=== PATIENT | male | born 1965 | race Caucasian/White ===

== ENCOUNTER 2018-10-20 06:45 | Inpatient (IN) | payer OTHER ==
[2018-10-20] VITALS (46 sets, daily range): BP systolic 75–112; BP diastolic 49–75
[~2018-10-20] VITALS: Ht 180.3 cm; Wt 94.3 kg
[2018-10-20] MEDS ORDERED: NS(*) 0.9% 1000 ML BAG 1,000 ML IV ONE ×4 (07:00→09:00)
[2018-10-20] MEDS ORDERED: ONDANSETRON 4 MG/2 ML VIAL IVP ONE (07:05)
[2018-10-20 07:15] LABS: PLATELET COUNT, AUTOMATED 187 K/uL (150-450)
[2018-10-20] MEDS ORDERED: fentaNYL CITR 100 MCG/2 ML AMP IVP ONE ×2 (07:20→12:00)
[2018-10-20] MEDS ORDERED: KETOROLAC 30 MG/ML VIAL IVP ONE (07:20)
[2018-10-20 07:25] LABS: INR 1.07
[2018-10-20] MEDS ORDERED: VANCOMYCIN 1 GM ADDVIAL 1 GM in NS(*) 0.9% 250 ML ADDVAN BAG 250 ML IVPB ONE (07:40)
[2018-10-20] MEDS ORDERED: PIPERACILLIN/TAZO*3.375GM VIAL 3.375 GM in NS(*) 0.9% 100 ML MINI-BAG 100 ML IVPB ONE (07:40)
--- NOTE | 2018-10-20 07:48 | ER Report ---
History and Physical Time Seen By MD: 07:48 Hx. of Stated Complaint: LOW BACK PAIN AND FEVER FOR 2 DAYS. GETS HEPATITIS C TREATMENT BUT DOES NOT KNOW WHAT IT IS HPI/ROS Known hep C. Currently undergoing treatment, but patient unsure of which regimen. 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 Brought to the ED by POV? Febrile, cough, somewhat confused. Admits to going to a casino on Sunday and drinking a moderate amount of alcohol. No abdominal pain. No vomiting/diarrhea. Remainder of the 14 system rev: Yes Allergies: Coded Allergies: No Known Drug Allergies (Unverified , 10/20/18) Home Meds Reported Medications Omeprazole (OMEPRAZOLE) 20 Mg Capsule.dr, 1 CAP PO QDAY, CAP 10/20/18 Glipizide (GLIPIZIDE) 10 Mg Tablet, 10 MG PO DAILY 10/20/18 Metformin Hcl (METFORMIN HCL) 1,000 Mg Tablet, 2 TAB PO QDAY, TAB 10/20/18 Reviewed Nurses Notes: Yes Old Medical Records Reviewed: Yes Hx Smoking: Yes Smoking Status: Current: Every Day Smoker Hx Substance Use Disorder: No Hx Alcohol Use: No Constitutional Vital Sign - Last 24 Hours 10/20/18 10/20/18 10/20/18 10/20/18 06:45 06:50 06:55 07:00 Pulse ? 110 113 B/P (MAP) 140/92 (108) 139/70 (93) Pulse Ox 91 92 10/20/18 10/20/18 10/20/18 10/20/18 07:03 07:05 07:10 07:15 Temp 103.3 Pulse 122 123 121 124 Resp 22 B/P (MAP) 140/90 Pulse Ox 88 90 90 91 O2 Delivery Room Air 10/20/18 10/20/18 10/20/18 10/20/18 07:20 07:25 07:29 07:40 Pulse 117 122 119 Resp 29 13 15 B/P (MAP) 132/71 (91) 112/65 (81) Pulse Ox 92 90 93 10/20/18 10/20/18 10/20/18 10/20/18 07:50 07:55 08:00 08:30 Pulse 111 Resp 19 B/P (MAP) 117/62 (80) 103/63 (76) 101/63 (76) Pulse Ox 91 10/20/18 10/20/18 10/20/18 10/20/18 08:40 08:45 08:50 08:53 Temp 102.4 Pulse 107 107 105 Resp 24 25 16 B/P (MAP) 103/65 (78) 93/60 (71) 93/60 (71) Pulse Ox 92 92 91 O2 Delivery Nasal Cannula O2 Flow Rate 2 10/20/18 10/20/18 10/20/18 10/20/18 09:00 09:10 09:15 09:20 Pulse 102 115 Resp 22 38 B/P (MAP) 101/64 (76) 104/58 (73) 108/64 (79) Pulse Ox 92 93 10/20/18 10/20/18 10/20/18 10/20/18 09:30 09:40 09:45 09:50 Pulse 114 107 106 Resp 0 25 18 B/P (MAP) 101/66 (78) 106/68 (81) 95/58 (70) Pulse Ox 82 96 96 O2 Delivery Nasal Cannula O2 Flow Rate 3 10/20/18 10/20/18 10/20/18 10/20/18 09:55 10:00 10:10 10:20 Pulse 102 Resp 11 B/P (MAP) 91/49 (63) 83/52 (62) 89/54 (66) Pulse Ox 96 10/20/18 10/20/18 10/20/18 10:25 10:30 10:34 Temp 101.7 Pulse 114 113 Resp 24 18 B/P (MAP) 71/40 (50) 89/51 (64) Pulse Ox 97 98 O2 Delivery Nasal Cannula O2 Flow Rate 3 Physical Exam General Appearance: The patient is alert, has no immediate need for airway protection and no signs of toxicity. Eyes: Pupils equal and round no pallor or injection. ENT, Mouth: Mucous membranes are dry Respiratory: There are no retractions, lungs with diffuse rhonchi Cardiovascular: Tachycardic Gastrointestinal: Abdomen is mildly distended, soft and non tender, no masses, bowel sounds normal. Neurological: Awake and alert, but mildly confused Skin: Warm and dry, no rashes. Musculoskeletal: Neck is supple non tender. Extremities are nontender, nonswollen and have full range of motion. DIFFERENTIAL DIAGNOSIS: After history and physical exam differential diagnosis was considered for adult fever including but not limited to viral syndromes including influenza, urinary tract infection, pneumonia and sepsis. Medical Decision Making Data Points Result Diagram: 10/20/18 0659 10/20/18 0659 Laboratory Hematology Test 10/20/18 06:59 10/20/18 09:24 Red Blood Count 4.67 M/uL (4.00-5.60) Mean Corpuscular Volume 91.7 fL (80.0-96.0) Mean Corpuscular Hemoglobin 30.3 pg (26.0-33.0) Mean Corpuscular Hemoglobin Concent 33.0 g/dL (32.0-36.0) Red Cell Distribution Width 18.2 % (11.5-14.5) Mean Platelet Volume 8.7 fL (7.2-11.1) Neutrophils (%) (Auto) 83.8 % (39.4-72.5) Lymphocytes (%) (Auto) 13.3 % (17.6-49.6) Monocytes (%) (Auto) 1.2 % (4.1-12.4) Eosinophils (%) (Auto) 1.3 % (0.4-6.7) Basophils (%) (Auto) 0.4 % (0.3-1.4) Nucleated RBC Relative Count (auto) 0.0 /100WBC Neutrophils # (Auto) 6.9 K/uL (2.0-7.4) Lymphocytes # (Auto) 1.1 K/uL (1.3-3.6) Monocytes # (Auto) 0.1 K/uL (0.3-1.0) Eosinophils # (Auto) 0.1 K/uL (0.0-0.5) Basophils # (Auto) 0.0 K/uL (0.0-0.1) Nucleated RBC Absolute Count (auto) 0.00 K/uL Prothrombin Time 14.0 seconds (12.0-14.4) Prothromb Time International Ratio 1.07 Activated Partial Thromboplast Time 27 seconds (23-35) Sodium Level 135 mmol/L (137-145) Potassium Level 3.8 mmol/L (3.5-5.0) Chloride Level 100 mmol/L (98-107) Carbon Dioxide Level 22 mmol/L (22-30) Blood Urea Nitrogen 11 mg/dl (9-21) Creatinine 0.60 mg/dl (0.66-1.25) Glomerular Filtration Rate Calc > 60.0 Random Glucose 293 mg/dl (75-110) Calcium Level 9.0 mg/dl (8.4-10.2) Total Bilirubin 1.5 mg/dl (0.2-1.3) Aspartate Amino Transf (AST/SGOT) 117 U/L (0-35) Alanine Aminotransferase (ALT/SGPT) 102 U/L (0-56) Alkaline Phosphatase 279 U/L (0-126) Ammonia 57 UMOL/L (9-33) Total Protein 7.5 g/dl (6.3-8.2) Albumin 3.6 g/dl (3.5-5.0) Amylase Level 41 U/L (0-110) Lipase 73 U/L (23-300) Lactate 3.3 mmol/L (0.7-2.1) Chemistry Test 10/20/18 06:59 10/20/18 09:24 White Blood Count 8.2 k/uL (4.5-11.0) Red Blood Count 4.67 M/uL (4.00-5.60) Hemoglobin 14.1 g/dL (14.0-18.0) Hematocrit 42.8 % (42.0-52.0) Mean Corpuscular Volume 91.7 fL (80.0-96.0) Mean Corpuscular Hemoglobin 30.3 pg (26.0-33.0) Mean Corpuscular Hemoglobin Concent 33.0 g/dL (32.0-36.0) Red Cell Distribution Width 18.2 % (11.5-14.5) Platelet Count 187 K/uL (150-450) Mean Platelet Volume 8.7 fL (7.2-11.1) Neutrophils (%) (Auto) 83.8 % (39.4-72.5) Lymphocytes (%) (Auto) 13.3 % (17.6-49.6) Monocytes (%) (Auto) 1.2 % (4.1-12.4) Eosinophils (%) (Auto) 1.3 % (0.4-6.7) Basophils (%) (Auto) 0.4 % (0.3-1.4) Nucleated RBC Relative Count (auto) 0.0 /100WBC Neutrophils # (Auto) 6.9 K/uL (2.0-7.4) Lymphocytes # (Auto) 1.1 K/uL (1.3-3.6) Monocytes # (Auto) 0.1 K/uL (0.3-1.0) Eosinophils # (Auto) 0.1 K/uL (0.0-0.5) Basophils # (Auto) 0.0 K/uL (0.0-0.1) Nucleated RBC Absolute Count (auto) 0.00 K/uL Prothrombin Time 14.0 seconds (12.0-14.4) Prothromb Time International Ratio 1.07 Activated Partial Thromboplast Time 27 seconds (23-35) Glomerular Filtration Rate Calc > 60.0 Calcium Level 9.0 mg/dl (8.4-10.2) Total Bilirubin 1.5 mg/dl (0.2-1.3) Aspartate Amino Transf (AST/SGOT) 117 U/L (0-35) Alanine Aminotransferase (ALT/SGPT) 102 U/L (0-56) Alkaline Phosphatase 279 U/L (0-126) Ammonia 57 UMOL/L (9-33) Total Protein 7.5 g/dl (6.3-8.2) Albumin 3.6 g/dl (3.5-5.0) Amylase Level 41 U/L (0-110) Lipase 73 U/L (23-300) Lactate 3.3 mmol/L (0.7-2.1) Coagulation Test 10/20/18 06:59 Prothrombin Time 14.0 seconds Prothromb Time International Ratio 1.07 Activated Partial Thromboplast Time 27 seconds Microbiology Microbiology Date/Time Source Procedure Growth Status 10/20/18 07:34 Blood Line Draw Blood Culture - Preliminary NO GROWTH SO FAR, SET LATE. REINCUBATED Resulted 10/20/18 06:59 Blood Peripheral Draw Blood Culture - Preliminary NO GROWTH SO FAR, SET LATE. REINCUBATED Resulted ED Course/Re-evaluation ED Course Sepsis likely secondary to pneumonia. No PE. GI bleed. CT scan of the abdomen and pelvis shows chronic findings from hepatitis cirrhosis. Not consistent with SBP. Given broad-spectrum antibiotics early in the patient's course due to sepsis. Blood pressure continued to drop in spite of fluid resuscitation, so Central Line placed. Pt. has improved clinically, however. Will admit to the ICU for further care. Procedure Procedure: Central line placement. After verbal informed consent from patient; with the risks explained to be bleeding, infection, and collapsed lung; maximal sterile barrier technique was uses including cap, gown, sterile gloves, large sheet, hand washing and chlorhexidine prep. The area anesthetized with 1% lidocaine. The right IJ was punctured with a 19 gauge finder needle, then a wire introducer was placed, a 7 Kazakh triple lumen was placed using Seldinger technique. There were no complications. Blood return low pressure, dark blood. Patient tolerated procedure well. CXR results: Appropriate line placement, and no pneumothorax. Xray was interpreted by myself. Radiologist interpretation is pending. The procedure was performed by myself. Decision to Disposition Date: Oct 20, 2018 Decision to Disposition Time: 11:54 Depart Departure Latest Vital Signs Vital Signs Date Time Temp Pulse Resp B/P (MAP) Pulse Ox O2 Delivery O2 Flow Rate FiO2 10/20/18 10:34 101.7 113 18 89/51 (64) 98 Nasal Cannula 3 Impression: Primary Impression: Pneumonia Additional Impression: Sepsis Condition: Improved Disposition: Admitted from ER Problem Qualifiers Primary Impression: Pneumonia Pneumonia type: due to unspecified organism Laterality: right Lung location: upper lobe of lung Qualified Codes: J18.1 - Lobar pneumonia, unspecified organism Additional Impression: Sepsis Sepsis type: sepsis due to unspecified organism Qualified Codes: A41.9 - Sepsis, unspecified organism MIA RMOANO MD Oct 20, 2018 07:48
--- NOTE | 2018-10-20 07:54 | EKG ---
[place] [facility] [place] NAME[place] BIENVENIDO MILNER : [id number] MR: [id number] V: [id number] EXAM DATE: ORDERING PHYSICIAN: MIA ROMANO TECHNOLOGIST: JACY Test Reason : AMS Blood Pressure : / mmHG Vent. Rate : 116 BPM Atrial Rate : 116 BPM P-R Int : 152 ms QRS Dur : 094 ms QT Int : 336 ms P-R-T Axes : 045 -55 049 degrees QTc Int : 467 ms Sinus tachycardia Left anterior fascicular block Inferior infarct , age undetermined Abnormal ECG No previous ECGs available Confirmed by Reno Chang ([id number]) on 10/20/2018 5:17:15 PM Referred By: JUAN ANTONIO Confirmed By:Reno Rodriguez
[2018-10-20] MEDS ORDERED: NS 0.9% IVPB ONE (08:00)
[2018-10-20] MEDS ORDERED: IOPAMIDOL 76% 100 ML INFUS BTL 100 ML ONE (08:00)
[2018-10-20] MEDS ORDERED: NS(*) 0.9% 50 ML BAG 50 ML ONE (08:00)
[2018-10-20] MEDS ORDERED: VANCOMYCIN IVPB ONE (08:00)
[2018-10-20] MEDS ORDERED: ADDVIAL IVPB ONE (08:00)
--- NOTE | 2018-10-20 09:12 | RADIOLOGY IMAGING REPORT ---
[facility] PATIENT NAME: Danny Mckeon : 1965 MR: [id number] V: [id number] EXAM DATE: ORDERING PHYSICIAN: MIA ROMANO TECHNOLOGIST: Location: 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 CT chest, abdomen, a nd pelvis with contrast. Sagittal, coronal and slab 3D MIP coronal reconstructed images were also cr eated of the chest for further evaluation and interpretation. One of the following dose optimization techniques was utilized in the performance of this exam: Autom ated exposure control; adjustment of the mA and/or kV according to the patient's size; or use of an i terative reconstruction technique. Specific details can be referenced in the facility's radiology CT exam operational policy. CONTRAST: 90 mL Isovue-370. COMPARISON: CT chest, abdomen, pelvis from same date. FINDINGS: CHEST: Heart/vessels: Satisfactory opacification of the pulmonary arteries without visualized pulmonary emb olus. Mediastinum: Negative. Lymph nodes: Numerous nonspecific subcentimeter mediastinal, hilar, cardiophrenic angle and axillary lymph nodes. Borderline prominent left axillary lymph node measuring up to 10 mm in short axis (imag e 19 of series 4). Borderline prominent right axillary lymph node measuring up to 12 mm in short axis (image 17). Lungs/pleura: Cluster of nodular opacities within the periphery of the right upper lobe with focal a del of consolidation measuring up to 14 x 7 mm (image 105 of series 10). No additional pulmonary opac ities identified. There is mild basilar atelectasis. Bones/soft tissues: Negative. ABDOMEN/PELVIS: Hepatobiliary: Asymmetric enlargement of the left and caudate lobes with lobulated nodular contour o f the liver, concerning for cirrhosis. No visualized hepatic lesions. There are a few punctate calcif ied granulomas. Diffuse gallbladder wall edema. No gross cholelithiasis. Spleen: Absent Adrenals: Indeterminate density right adrenal nodule measuring approximately 4.0 x 2.6 cm. Left adre nal gland is unremarkable. Pancreas: Negative. Kidneys/: Exophytic cystic lesion extending laterally off the right kidney measuring up to 1.5 cm i n diameter. There is slightly increased attenuation measuring approximately 23 Hounsfield units. Mild /moderate nonspecific diffuse bladder wall thickening which may be at least somewhat related to under distention. GI: Moderate circumferential wall thickening throughout the large and small bowel. Appendix is unrem arkable. No definitive evidence for small bowel obstruction although there is prominent loops of jeju num, favored related to the wall thickening. The wall thickening within the small bowel is greatest w ithin the jejunum. Vessels/spaces/nodes: Moderate atherosclerosis. Small volume free fluid. Numerous nonspecific subce ntimeter retroperitoneal and mesenteric lymph nodes. Borderline prominent periportal lymph nodes. Niles ple node on image 96 measures up to 18 mm in short axis. Aorta and IVC appear widely patent and viviane l in caliber. Prominence of the main portal vein measuring up to 21 mm. Portal and hepatic veins appear grossly pat ent. There are small/moderate caliber abdominal varices. SMV is prominent in size and widely patent. Bones/soft tissues: Multiple small fat-containing supraumbilical ventral abdominal wall hernias. 5 mm anterolisthesis of L5 on S1 with bilateral L5 pars defects and moderate L5-S1 degenerative disc di sease. IMPRESSION: Chest: 1. No acute findings. Negative for pulmonary embolus. 2. Focal cluster of nodular opacities within the right upper lobe favored related to a small airways infectious process including fungal and atypical etiologies. Alternatively however cannot exclude a p rimary pulmonary malignancy. 3 month follow-up CT chest is recommended.3. Nonspecific borderline prom inent and subcentimeter mediastinal, hilar, axillary, and cardiophrenic angle lymph nodes. While thes e nodes may be reactive, cannot exclude a lymphoproliferative process. Abdomen/pelvis: 1. Diffuse thickened loops of bowel, greatest within the jejunum. Findings are nonspecific however co uld be related to the patient's septic shock and shock bowel. The IVC and aorta do not appear small/c ollapse although this could be related to fluid resuscitation. Also, cannot exclude component of wall edema from fluid resuscitation and thickening/edema related to portal colopathy/enteropathy given ap parent findings of cirrhosis and portal hypertension. 2. Morphologic changes within the liver suggestive of cirrhosis without gross hepatoma. 3. Findings suggestive of portal hypertension including prominence of the main portal vein and small/ moderate caliber abdominal varices. Is also small volume ascites. 4. Numerous nonspecific subcentimeter borderline prominent abdominal lymph nodes. Cannot exclude a ly mphoproliferative process. 5. Diffuse gallbladder wall edema, favored related to a combination of fluid resuscitation and cirrho sis. 6. Mild/moderate nonspecific diffuse bladder wall thickening, likely at least partially related to un derdistention. No perivesicular inflammation to suggest cystitis however cannot be completely exclude d. 7. Incidental note of a mildly hyperdense cystic lesion extending laterally off of the right kidney m easuring up to 1.5 cm, likely representing a hemorrhagic/proteinaceous cyst. Follow-up renal ultrasou nd is suggested on a nonemergent basis. 8. Hyperdense indeterminate density right adrenal nodule/nodularity. Differential includes a nonspeci fic adrenal nodule versus hemorrhage. CT adrenal mass protocol is recommended on a nonemergent basis 9. Additional incidental/chronic findings, as above. Results were discussed with MIA ROMANO at 10/20/2018 9:07 AM. Report Dictated By: Nelson Joel MD at 10/20/2018 8:39 AM Report E-Signed By: Nelson Joel MD at 10/20/2018 9:08 AM WSN:[id number]
--- NOTE | 2018-10-20 09:12 | RADIOLOGY IMAGING REPORT ---
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 CT chest, abdomen, a nd pelvis with contrast. Sagittal, coronal and slab 3D MIP coronal reconstructed images were also cr eated of the chest for further evaluation and interpretation. One of the following dose optimization techniques was utilized in the performance of this exam: Autom ated exposure control; adjustment of the mA and/or kV according to the patient's size; or use of an i terative reconstruction technique. Specific details can be referenced in the facility's radiology CT exam operational policy. CONTRAST: 90 mL Isovue-370. COMPARISON: CT chest, abdomen, pelvis from same date. FINDINGS: CHEST: Heart/vessels: Satisfactory opacification of the pulmonary arteries without visualized pulmonary emb olus. Mediastinum: Negative. Lymph nodes: Numerous nonspecific subcentimeter mediastinal, hilar, cardiophrenic angle and axillary lymph nodes. Borderline prominent left axillary lymph node measuring up to 10 mm in short axis (imag e 19 of series 4). Borderline prominent right axillary lymph node measuring up to 12 mm in short axis (image 17). Lungs/pleura: Cluster of nodular opacities within the periphery of the right upper lobe with focal a del of consolidation measuring up to 14 x 7 mm (image 105 of series 10). No additional pulmonary opac ities identified. There is mild basilar atelectasis. Bones/soft tissues: Negative. ABDOMEN/PELVIS: Hepatobiliary: Asymmetric enlargement of the left and caudate lobes with lobulated nodular contour o f the liver, concerning for cirrhosis. No visualized hepatic lesions. There are a few punctate calcif ied granulomas. Diffuse gallbladder wall edema. No gross cholelithiasis. Spleen: Absent Adrenals: Indeterminate density right adrenal nodule measuring approximately 4.0 x 2.6 cm. Left adre nal gland is unremarkable. Pancreas: Negative. Kidneys/: Exophytic cystic lesion extending laterally off the right kidney measuring up to 1.5 cm i n diameter. There is slightly increased attenuation measuring approximately 23 Hounsfield units. Mild /moderate nonspecific diffuse bladder wall thickening which may be at least somewhat related to under distention. GI: Moderate circumferential wall thickening throughout the large and small bowel. Appendix is unrem arkable. No definitive evidence for small bowel obstruction although there is prominent loops of jeju num, favored related to the wall thickening. The wall thickening within the small bowel is greatest w ithin the jejunum. Vessels/spaces/nodes: Moderate atherosclerosis. Small volume free fluid. Numerous nonspecific subce ntimeter retroperitoneal and mesenteric lymph nodes. Borderline prominent periportal lymph nodes. Niles ple node on image 96 measures up to 18 mm in short axis. Aorta and IVC appear widely patent and viviane l in caliber. Prominence of the main portal vein measuring up to 21 mm. Portal and hepatic veins appear grossly pat ent. There are small/moderate caliber abdominal varices. SMV is prominent in size and widely patent. Bones/soft tissues: Multiple small fat-containing supraumbilical ventral abdominal wall hernias. 5 mm anterolisthesis of L5 on S1 with bilateral L5 pars defects and moderate L5-S1 degenerative disc di sease. IMPRESSION: Chest: 1. No acute findings. Negative for pulmonary embolus. 2. Focal cluster of nodular opacities within the right upper lobe favored related to a small airways infectious process including fungal and atypical etiologies. Alternatively however cannot exclude a p rimary pulmonary malignancy. 3 month follow-up CT chest is recommended.3. Nonspecific borderline prom inent and subcentimeter mediastinal, hilar, axillary, and cardiophrenic angle lymph nodes. While thes e nodes may be reactive, cannot exclude a lymphoproliferative process. Abdomen/pelvis: 1. Diffuse thickened loops of bowel, greatest within the jejunum. Findings are nonspecific however co uld be related to the patient's septic shock and shock bowel. The IVC and aorta do not appear small/c ollapse although this could be related to fluid resuscitation. Also, cannot exclude component of wall edema from fluid resuscitation and thickening/edema related to portal colopathy/enteropathy given ap parent findings of cirrhosis and portal hypertension. 2. Morphologic changes within the liver suggestive of cirrhosis without gross hepatoma. 3. Findings suggestive of portal hypertension including prominence of the main portal vein and small/ moderate caliber abdominal varices. Is also small volume ascites. 4. Numerous nonspecific subcentimeter borderline prominent abdominal lymph nodes. Cannot exclude a ly mphoproliferative process. 5. Diffuse gallbladder wall edema, favored related to a combination of fluid resuscitation and cirrho sis. 6. Mild/moderate nonspecific diffuse bladder wall thickening, likely at least partially related to un derdistention. No perivesicular inflammation to suggest cystitis however cannot be completely exclude d. 7. Incidental note of a mildly hyperdense cystic lesion extending laterally off of the right kidney m easuring up to 1.5 cm, likely representing a hemorrhagic/proteinaceous cyst. Follow-up renal ultrasou nd is suggested on a nonemergent basis. 8. Hyperdense indeterminate density right adrenal nodule/nodularity. Differential includes a nonspeci fic adrenal nodule versus hemorrhage. CT adrenal mass protocol is recommended on a nonemergent basis 9. Additional incidental/chronic findings, as above. Results were discussed with MIA ROMANO at 10/20/2018 9:07 AM. Report Dictated By: Nelson Joel MD at 10/20/2018 8:39 AM Report E-Signed By: Nelson Joel MD at 10/20/2018 9:08 AM WSN:[id number]
[2018-10-20] MEDS ORDERED: GLIP-154 PO (09:16)
[2018-10-20] MEDS ORDERED: METF-452 PO (09:16)
[2018-10-20] MEDS ORDERED: OMEP-126 PO (10:19)
[2018-10-20] MEDS ORDERED: FLUSH 10 ML SYR IVP PRN (11:45)
[2018-10-20] MEDS ORDERED: PIPERACILLIN/TAZO* 4.5 GM VIAL 4.5 GM in NS(*) 0.9% 100 ML MINI-BAG 100 ML IVPB SCH (12:00)
--- NOTE | 2018-10-20 12:24 | RADIOLOGY IMAGING REPORT ---
FACILITY: [facility] - [place] PATIENT NAME: Danny Mckeon : 1965 MR: [id number] V: [id number] EXAM DATE: ORDERING PHYSICIAN: MIA ROMANO TECHNOLOGIST: Location: [facility] [place] Patient: Danny Mckeon : 1965 Visit/Account:[id number] Date of Sevice: 10/20/2018 CHEST SINGLE AP Indication: CENTRAL LINE PLACEMENT Comparison: CT from same date. Findings: Right internal jugular central line with tip projecting over the cavoatrial junction. Heart size within normal limits. There is no focal infiltrate or lobar consolidation. No pneumothorax or pleural effusion. IMPRESSION: 1. No acute cardiopulmonary process. 2. Right internal jugular central line with tip projecting over the cavoatrial junction. No visualize d pneumothorax. Report Dictated By: Nelson Joel MD at 10/20/2018 12:18 PM Report E-Signed By: Nelson Joel MD at 10/20/2018 12:19 PM WSN:[id number]
[2018-10-20] MEDS: NOREPINE BITAR* 4 MG/4 ML AMP 8 MG in D5W(*) 500 ML BAG 492 ML IV PRN (12:42)
[2018-10-20] MEDS: NS(*) 0.9% 1000 ML BAG 1,000 ML IV PRN ×2 (12:44→14:40)
[2018-10-20] MEDS ORDERED: NS(*) 0.9% 500 ML BAG 500 ML IV PRN (13:15)
[2018-10-20] MEDS: CEFEPIME HCL 2 GM VIAL IVP SCH ×2 (16:06→23:37)
--- NOTE | 2018-10-20 16:49 | History & Physical ---
History of Present Illness Chief Complaint Fever, cough History of Present Illness 53M presented with cough, confusion, fever. PMHx significant for HCV, GERD, DM, chronic back pain. Patient brought to ER by EMS with confusion, found febrile with cough. Patient poor historian secondary to confusion, unclear how long he has felt poor. CT demonstrated RUL infiltrate, some abdominal findings of edema thought to be secondary to HCV, cirrhosis, portal HTN. BP low responded to IV fluid bolus but then again decreased. He was admitted to ICU for septic shock secondary to presumed PNA. History Unable To Obtain Past Medical: Unable to Obtain/Update Problems: (1) HCV infection Status: Chronic (2) Cirrhosis Status: Chronic (3) DM (diabetes mellitus) Status: Chronic Home Meds Reported Medications Omeprazole (OMEPRAZOLE) 20 Mg Capsule.dr, 1 CAP PO QDAY, CAP 10/20/18 Glipizide (GLIPIZIDE) 10 Mg Tablet, 10 MG PO DAILY 10/20/18 Metformin Hcl (METFORMIN HCL) 1,000 Mg Tablet, 2 TAB PO QDAY, TAB 10/20/18 Allergies: Coded Allergies: No Known Drug Allergies (Unverified , 10/20/18) Hx Smoking: Yes Smoking Status: Current: Every Day Smoker Hx Alcohol Use: No Hx Substance Use Disorder: No Review of Systems All Systems Reviewed/Normal: Yes, Except as Noted Constitutional: Fever Neurological: Confusion Respiratory: Cough Exam Vital Signs Vital Signs Date Time Temp Pulse Resp B/P (MAP) Pulse Ox O2 Delivery O2 Flow Rate FiO2 10/20/18 15:30 108 15 100/67 (78) 93 Nasal Cannula 3.0 10/20/18 14:00 101.2 General Appearance: Awake (moderate acute distress, febrile) Neuro: No Gross deficits Cardiovascular: Other (tachycardic, no murmur) Respiratory: No Respiratory Distress GI: Other (distended, non-tender) Extremities: Soft and Non Tender, Warm, Pulses, Perfused Medical Decision Making Data Points Result Diagram: 10/20/1859 10/20/18 06 EKG / Imaging EKG Interpretation Sinus tachycardia Assessment and Plan Problems: (1) Septic shock Assessment & Plan: 30mL/kg fluid resuscitation given in ER. Admit to ICU, begin pressor support wean as tolerated. Broad spectrum antibiotics continue IV fluid. 2/2 blood cultures with GPC in chains on microscopy. (2) Pneumonia Assessment & Plan: RUL per imaging, begin broad spectrum antibiotic coverage with vancomycin and cefepime. Supplemental O2 as needed. (3) Cirrhosis Status: Chronic Assessment & Plan: Compensated, secondary to HCV and alcohol. Still drinks occasionally despite cirrhosis most recent one week ago in [facility]. (4) DM (diabetes mellitus) Status: Chronic Assessment & Plan: Accuchecks ACHS and sliding scale insulin #2 for coverage. (5) HCV infection Status: Chronic Assessment & Plan: Currently undergoing HAV and HBV immunization before beginning treatment at [facility] in [place]. Venous Thromboembolism Antithrombotics Is Pt On Any Antithrombotics?: Yes Exam Sepsis Risk: No Definite Risk Problem Qualifiers (1) Pneumonia: Pneumonia type: due to unspecified organism Laterality: right Lung location: upper lobe of lung Qualified Codes: J18.1 - Lobar pneumonia, unspecified organism ALINA PEREIRA DO Oct 20, 2018 16:49
[2018-10-20] MEDS: NICOTINE 21 MG/24 HR PATCH TD PRN (17:03)
[2018-10-20] MEDS: INSULIN HUM LISPRO 100 UN/ML 3 ML VIAL SUBQ PRN ×2 (17:03→20:49)
[2018-10-20] MEDS: VANCOMYCIN(*) 1 GM VIAL 1 GM, VANCOMYCIN (*) 0.5 GM VIAL 0.5 GM in NS(*) 0.9% 250 ML BA... IVPB SCH (20:50)
[2018-10-20] MEDS ORDERED: VANCOMYCIN(*) 1 GM VIAL 1 GM, VANCOMYCIN (*) 0.5 GM VIAL 0.5 GM in NS(*) 0.9% 250 ML BA... IVPB SCH (21:00)
[2018-10-20] MEDS: oxyCODONE HCL 5 MG CAP PO PRN (22:00)
[2018-10-20] MEDS: ACETAMINOPHEN 500 MG TAB PO PRN (23:36)
[2018-10-21] VITALS (93 sets, daily range): BP systolic 73–138; BP diastolic 49–89
[2018-10-21] MEDS: NOREPINE BITAR* 4 MG/4 ML AMP 8 MG in D5W(*) 500 ML BAG 492 ML IV PRN (03:14)
[2018-10-21 04:35] LABS: PLATELET COUNT, AUTOMATED 135 K/uL (150-450)
[2018-10-21] MEDS: VANCOMYCIN(*) 1 GM VIAL 1 GM, VANCOMYCIN (*) 0.5 GM VIAL 0.5 GM in NS(*) 0.9% 250 ML BA... IVPB SCH ×3 (05:33→20:22)
[2018-10-21] MEDS: NS(*) 0.9% 1000 ML BAG 1,000 ML IV PRN (05:37)
--- NOTE | 2018-10-21 08:11 | Hospitalist Progress Note ---
Subjective Progress Notes Subjective He is awake and alert. He reports feeling improved. Still requiring Levophed. Physical Exam Vital Signs Date Time Temp Pulse Resp B/P (MAP) Pulse Ox O2 Delivery O2 Flow Rate FiO2 10/21/18 06:30 97.6 89 15 102/63 (76) 92 High-Flow Nasal Cannula 3.0 Intake and Output 10/21/18 07:00 Intake Total 5914 ml Output Total 1350 ml Balance 4564 ml Intake Oral 90 ml IV Total 5824 ml Output Urine Total 1350 ml General Appearance: Alert, Awake, Other (oriented to person/place/time) Neuro: No Gross deficits ENT: Oropharynx Clear, Other (poor dentition especially two left upper molars, but no tenderness/drainage) Neck: No Masses Cardiovascular: Regular Rate and Rhythm Respiratory: Other (few scattered rhonchi bilaterally) Chest: No Tenderness GI: Other (soft/ventral hernia - diastasis/no obvious fluid wave/no guarding or rebound) : No CVA Tenderness Extremities: Warm, Perfused Integumentary: Other (no obvious skin lesions noted) Result Diagram: 10/21/18 0403 10/21/18 0403 Item Value Date Time Albumin 2.7 g/dl L 10/21/18 0403 Total Protein 6.0 g/dl L 10/21/18 0403 Alkaline Phosphatase 105 U/L 10/21/18 0403 Alanine Aminotransferase (ALT/SGPT) 99 U/L H 10/21/18 0403 Aspartate Amino Transf (AST/SGOT) 105 U/L H 10/21/18 0403 Total Bilirubin 1.7 mg/dl H 10/21/18 0403 Calcium Level 7.3 mg/dl L 10/21/18 0403 Assessment and Plan Problems: (1) Septic shock Status: Acute Assessment & Plan: He was given aggressive IV fluid resuscitation and admitted to ICU. He is still on pressor support with Levophed. Will try to wean as tolerated. He is on broad spectrum IV antibiotics with cefepime and vancomycin. He already has 2/2 blood cultures growing GPC in chains. Probable pneumonia as the source, but he didn't/doesn't really have much in the way of localizing symptoms/signs. Will continue with same for now. Watch closely. (2) Pneumonia Assessment & Plan: Small area in RUL noted on CT scan. He is on broad spectrum antibiotic coverage with vancomycin and cefepime. Supplemental O2 as needed. (3) Cirrhosis Status: Chronic Assessment & Plan: Compensated, most likely secondary to hepatitis C and alcohol. He reports still drinking occasionally despite cirrhosis - most recently one week ago in [facility]. Will monitor for signs/symptoms of withdrawal. (4) DM (diabetes mellitus) Status: Chronic Assessment & Plan: Accuchecks ACHS and sliding scale insulin #2 for coverage. (5) HCV infection Status: Chronic Assessment & Plan: Currently undergoing HAV and HBV immunization before beginning treatment at [facility] in [place]. Exam Sepsis Risk: No Definite Risk Problem Qualifiers (1) Pneumonia: Pneumonia type: due to unspecified organism Laterality: right Lung location: upper lobe of lung Qualified Codes: J18.1 - Lobar pneumonia, unspecified organism JAMILAH ARMAS MD Oct 21, 2018 08:11
[2018-10-21] MEDS: CEFEPIME HCL 2 GM VIAL IVP SCH ×2 (08:14→16:34)
[2018-10-21] MEDS: INSULIN HUM LISPRO 100 UN/ML 3 ML VIAL SUBQ PRN ×4 (08:25→20:31)
[2018-10-21] MEDS: PANTOPRAZOLE SOD 40 MG IV VIAL IVP SCH (08:55)
[2018-10-21] MEDS: ENOXAPARIN 40 MG/0.4ML SYR SC SCH (08:57)
--- NOTE | 2018-10-21 13:39 | Medical Nutrition Therapy ---
Nutrition Anthropometrics Height (Inches): 71.00 Height (Calculated Centimeters: [phone] Weight (Pounds): 197 Weight (Calculated Kilograms): 89.584 BMI: 27.5 Dav Nutrition Score: Adequate Dav Nutrition Risk Score: 19 Dietary Referral Nutrition Risk Factors: Nutrition Risk Comment: Physical Findings Physical Appearance: Overweight BMI 25-29 Skin Appearance Skin Appearance: Jaundice Edema Edema Location Modifier: Edema Location: Type of Edema: Ascites Degree of Edema: Gastrointestinal Symptoms GI Symtoms: Tube Present: Bowel Sounds: Recent Bowel Pattern: Stool Characteristics: Nutrition/Food History Increased Appetite Good Alcohol Use: Occassional Breakfast: Breakfast Burrito, Breakfast [place], Eggs, Sausage, Hashbrowns Lunch: Soup Dinner: Fast Food [place] Nutritional Diagnosis Nutritional Risk Acuity 2: Sepsis, Liver Cirrhosis Past Medical History: DM, Hepatitis C, Cirrhosis Nutritional Acuity: 2-Moderate Nutrition Diagnosis: Increased Nutrient Needs Nutrition Etiology: Physiological Causes Nutrition Problem/Etiology/Sym: Sepsis, Liver Cirrhosis, Ascites Energy Requirement: 2238 (25kcal/kg (Liver Disease)) Protein Requirement: 117 (117 g/day 1.5g/kg(Stress+Ascites+Cirrhosis) using IBW of 172 lbs) Fluid Requirement: 2238 (1kcal/mL) Diet Type: Diabetic Nutrition Intervention: Cont diet as ordered Nutrition Monitoring & Eval Nutrition Goals: Eat 75-100% Meal, Eat 90-100% Meal Nutrition Monitoring: Monitor intake, fluid retention. RD Patient Assessment Time: [address] Assessment Type: RD Assessment Patient Nutrition Acuity: 2-Moderate Follow Up Date: Oct 25, 2018 Nutritional Comment: Reviewed pt medical hx. Pt reports increased appetite. Discussed with pt importance of getting adequate protein intake to maintain muscle mass and help with fluid retention. 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 Will continue to monitor intake and fluid retention. Monitor for B vitamin and fat soluble vitamin deficiencies. KIMBERLEE STEELE Oct 21, 2018 13:29
[2018-10-21] MEDS: oxyCODONE HCL 5 MG CAP PO PRN ×2 (15:44→22:11)
--- NOTE | 2018-10-21 15:59 | Antimicrobial Stewardship ---
Antimicrobial Stewardship Empiricly appropriate: Yes (Broad Spectrum Abx) Significant PMH: Yes (DM, HCV, cirrhosis, portal HTN, varices) Support empiric regimen: Yes Approriate Cultures done: Yes (Blood Cx x 2 --> 4/4 bottles growing GPC in chains) Gram stain show Microbs: Yes Renal/Hepatic dosing: Yes (Renal function wnl - Scr = 0.6, Hepatic function (HCV +), cirrhosis) Serum concentration checked: Yes (Vancomycin troughs are being followed, see below ) Determine cumulative duration: 10/20/18 - Day 1 Determine standard duration: unknown - likely sepsis with GPC - potentially secondary to pneumonia Comment 53 yo M with a PMH of HCV, DM, portal HTN, varices, cirrhosis who had low back pain, fever, and cough. 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 Tmax 103.3 BP - hypotensive 80-90s/50-60s - started on pressors HR 100s WBC 8.2 -->32.1 Neuts left shift, now with bandemia Scr 0.6 Tbili 1.7 Ca 7.3 Alb 2.7 Lactate 3.1 -3.3-3.2-2 AST 117 - 105 ALT 102-99 ALK PHOS 279-105 Ammonia 57 Blood Cx x 2 - 4/4 bottles growing GPC chains- pending ID and sens UA - not significant--> glucose elevated CT chest/abd/pelvis, CTA (-) PE (+) adenopathy - axillary, hilar, mediastinal (+) RUL nodular opacity, focal infiltrate (+) liver cirrhosis (-) spleen (asplenic) (+) adrenal nodules Antibiotics -Zosyn 3.375 x 1, 10/20 0800 -Cefepime 2g IV q8h Vancomycin goal 15-20 mcg/mL On Vancomycin 2g load x 1 on 10/20/18 @ 0830, followed by Vancomycin 1.5g IV q8h, started 10/20/18 @ 2049 Vanco Trough 10/21 0400 = 10.73, kept same 1.5g IV q8h (not at steady state, first interval was 12 hours) Vanco Trough 10/21 1152 = 13.28, kept same 1.5g IV q8h, next trough 10/22 0400 Plan to keep Cefepime + Vancomycin until ID and sens are back on GPC in chains growing in the blood. Consider S. pneumoniae (pt is asplenic--unsure of vaccine status). Consider vaccination as soon as possible for encapsulated organisms, Hib, meningococcal, pneumococcal if vaccine status unknown once recovered from acute illness. If s. pneumoniae pneumonia/bacteremia, may de-escalate therapy to monotherapy once sensitivities are known and patient had symptomatically improved. Treatment should be a total of 10-14 days in patients that are bacteremic with s. pneumoniae. Continue treatment as written, will follow closely. Ana María Nunn, PharmD, BCOP ANA MARÍA NUNN Oct 21, 2018 15:59
[2018-10-21] MEDS: NICOTINE 21 MG/24 HR PATCH TD PRN (17:09)
[2018-10-21] MEDS: DOCUSATE SODIUM 100 MG CAP PO SCH (20:20)
[2018-10-22] VITALS (34 sets, daily range): BP systolic 88–130; BP diastolic 46–95
[2018-10-22] MEDS: ACETAMINOPHEN 500 MG TAB PO PRN ×2 (00:08→22:16)
[2018-10-22] MEDS ORDERED: MELATONIN 3 MG TAB PO ONE (00:53)
[2018-10-22] MEDS ORDERED: MELATONIN 3 MG TAB PO PRN (00:55)
[2018-10-22] MEDS: NS(*) 0.9% 1000 ML BAG 1,000 ML IV PRN ×2 (01:00→14:04)
[2018-10-22] MEDS: oxyCODONE HCL 5 MG CAP PO PRN ×3 (04:06→22:16)
[2018-10-22 04:15] LABS: PLATELET COUNT, AUTOMATED 120 K/uL (150-450)
[2018-10-22] MEDS ORDERED: VANCOMYCIN(*) 1 GM VIAL 1 GM, VANCOMYCIN HCL 0.750 GM VIAL 0.75 GM in NS(*) 0.9% 250 ML... IVPB SCH (05:00)
[2018-10-22] MEDS ORDERED: VANCOMYCIN 0.5 GM VIAL ONE (05:37)
[2018-10-22] MEDS: CEFEPIME HCL 2 GM VIAL IVP SCH ×2 (07:47)
[2018-10-22] MEDS: ENOXAPARIN 40 MG/0.4ML SYR SC SCH (08:38)
[2018-10-22] MEDS: PANTOPRAZOLE SOD 40 MG IV VIAL IVP SCH (08:38)
[2018-10-22] MEDS: POTASSIUM CHL 20 MEQ TABCR PO SCH ×2 (08:38→16:51)
[2018-10-22] MEDS: DOCUSATE SODIUM 100 MG CAP PO SCH ×2 (08:39→21:07)
--- NOTE | 2018-10-22 09:08 | Hospitalist Progress Note ---
Subjective Progress Notes Subjective This patient was admitted for sepsis. He had no acute events overnight. Patient Complains of: Cardiovascular: No: Chest Pain Respiratory: No: Shortness of Breath Physical Exam Vital Signs Date Time Temp Pulse Resp B/P (MAP) Pulse Ox O2 Delivery O2 Flow Rate FiO2 10/22/18 08:18 103 10/22/18 08:00 93 High-Flow Nasal Cannula 3.0 10/22/18 06:30 23 110/75 (87) 10/22/18 04:00 98.8 Intake and Output 10/22/18 07:00 Intake Total 4977 ml Output Total 2600 ml Balance 2377 ml Intake Oral 1820 ml IV Total 3157 ml Output Urine Total 2600 ml Cardiovascular: Regular Rate and Rhythm Respiratory: Clear to Auscultation Result Diagram: 10/22/1840210/22/18402 Assessment and Plan Problems: (1) Septic shock Status: Acute Assessment & Plan: He did require IV fluid resuscitation and a norepinephrine infusion. He has since weaned off vasopressor support. (2) Pneumonia Assessment & Plan: He did present with a cough and has been febrile. A CT scan showed a nodular density that was favored to be infectious. He was on empiric treatment with vancomycin and cefepime. His cultures are growing an alpha hemolytic Streptococcus. We converted him to ceftriaxone today. Repeat blood cultures are ordered for tomorrow. An echocardiogram has also been ordered. (3) Lung nodule Assessment & Plan: A repeat CT scan is recommended in 3 months. (4) Cirrhosis Status: Chronic Assessment & Plan: He does have a history of hepatitis C and alcohol use. (5) DM (diabetes mellitus) Status: Chronic Assessment & Plan: He is on chronic treatment with metformin and glipizide, which are both currently on hold. He is on sliding scale level #2. (6) HCV infection Status: Chronic Assessment & Plan: Currently undergoing HAV and HBV immunization before beginning treatment at [facility] in [place]. Exam Sepsis Risk: Sepsis Risk Problem Qualifiers (1) Pneumonia: Pneumonia type: due to unspecified organism Laterality: right Lung location: upper lobe of lung Qualified Codes: J18.1 - Lobar pneumonia, unspecified organism (2) DM (diabetes mellitus): Diabetes mellitus type: type 2 TATA FLOWER DO Oct 22, 2018 09:08
[2018-10-22] MEDS: SALINE NASAL GEL 14.1 GM TUBE PRN (11:59)
[2018-10-22] MEDS: INSULIN HUM LISPRO 100 UN/ML 3 ML VIAL SUBQ PRN ×3 (11:59→21:06)
[2018-10-22] MEDS ORDERED: ATOR40TA24 PO (12:35)
[2018-10-22] MEDS: cefTRIAXone 2 GM VIAL IVP SCH (12:35)
[2018-10-22] MEDS ORDERED: GLIM4TAB50 PO (12:38)
[2018-10-22] MEDS: NICOTINE 21 MG/24 HR PATCH TD PRN (16:51)
[2018-10-23] MEDS: NS(*) 0.9% 1000 ML BAG 1,000 ML IV PRN
[2018-10-23 03:27] VITALS: BP 104/75
[2018-10-23 06:00] LABS: PLATELET COUNT, AUTOMATED 140 K/uL (150-450)
[2018-10-23 06:45] VITALS: BP 115/73
[2018-10-23] MEDS ORDERED: BACITRACIN OINT 0.9 GM PKT TP ONE (07:55)
[2018-10-23] MEDS: DOCUSATE SODIUM 100 MG CAP PO SCH ×2 (09:42→21:00)
[2018-10-23] MEDS: PANTOPRAZOLE SOD 40 MG TABEC PO SCH (09:42)
[2018-10-23] MEDS: POTASSIUM CHL 20 MEQ TABCR PO SCH ×2 (09:42→16:54)
[2018-10-23] MEDS: ENOXAPARIN 40 MG/0.4ML SYR SC SCH (09:43)
[2018-10-23] MEDS: oxyCODONE HCL 5 MG CAP PO PRN ×2 (10:18→18:28)
[2018-10-23] MEDS ORDERED: SALINE 0.65% NAS SPR 44 ML BTL PRN (10:20)
--- NOTE | 2018-10-23 11:48 | Hospitalist Progress Note ---
Subjective Progress Notes Subjective 53M admitted for septic shock. Improving, discussed need for IV antibiotics with patient. 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 Explained that this would not be recommended and we need to get IV antibiotics in place for him before discharge. He Broached idea of leaving AMA. Physical Exam Vital Signs Date Time Temp Pulse Resp B/P (MAP) Pulse Ox O2 Delivery O2 Flow Rate FiO2 10/23/18 06:45 98.1 87 12 115/73 (87) 96 High-Flow Nasal Cannula 6.0 Intake and Output 10/23/18 07:00 Intake Total 3531 ml Output Total 525 ml Balance 3006 ml Intake Oral 1680 ml IV Total 1851 ml Output Urine Total 525 ml # Voids 4 General Appearance: Alert, Awake, No Acute Distress, Afebrile Neuro: No Gross deficits Cardiovascular: Normal Rhythm & Peripheral Pulses Respiratory: Clear to Auscultation (on 3L NC) GI: Soft and Non-Tender (distended) Extremities: Soft and Non Tender, Warm, Pulses, Perfused Integumentary: Jaundice Result Diagram: 10/23/1853910/23/18539 Assessment and Plan Problems: (1) Bacteremia Assessment & Plan: Growing group D strep in blood culture. On ceftriaxone, TTE no evidence vegetations likely GI source given isolate on culture. Will need 2 weeks minimum IV antibiotic. Reports he was hospitalized twice within last 1-2 months with blood stream infections. Attempt to get result from [place] hospitalization, if same bacteria likely has endocarditis and would need 4 weeks IV antibiotic minimum and would recommend ZAYNAB. (2) Septic shock Status: Acute Assessment & Plan: Resolved. He did require IV fluid resuscitation and a norepinephrine infusion. He has since weaned off vasopressor support. On ceftriaxone per sensitivity data. (3) Lung nodule Assessment & Plan: He did present with a cough and has been febrile. A CT scan showed a nodular density that was favored to be infectious vs malignant. His cultures are growing an alpha hemolytic Streptococcus, likely from mouth or GI tract. A repeat CT scan is recommended in 3 months, given extensive lymphadenopathy and likely GI source could consider direct to biopsy. (4) Cirrhosis Status: Chronic Assessment & Plan: He does have a history of hepatitis C and alcohol use. (5) DM (diabetes mellitus) Status: Chronic Assessment & Plan: He is on chronic treatment with metformin and glipizide, which are both currently on hold. He is on sliding scale level #2. (6) HCV infection Status: Chronic Assessment & Plan: Currently undergoing HAV and HBV immunization before b eginning treatment at [facility] in [place]. Exam Sepsis Risk: Sepsis Risk Problem Qualifiers (1) DM (diabetes mellitus): Diabetes mellitus type: type 2 ALINA PEREIRA DO Oct 23, 2018 11:48
[2018-10-23 11:55] VITALS: BP 117/79
[2018-10-23] MEDS: INSULIN HUM LISPRO 100 UN/ML 3 ML VIAL SUBQ PRN ×3 (11:58→21:38)
[2018-10-23] MEDS: cefTRIAXone 2 GM VIAL IVP SCH (12:26)
[2018-10-23 15:55] VITALS: BP 115/81
[2018-10-23] MEDS: SALINE NASAL GEL 14.1 GM TUBE PRN (21:34)
[2018-10-23 23:05] VITALS: BP 118/70
[2018-10-24 02:36] VITALS: BP 110/71
[2018-10-24 05:52] LABS: PLATELET COUNT, AUTOMATED 175 K/uL (150-450)
[2018-10-24 06:56] VITALS: BP 107/68
[2018-10-24] MEDS: POTASSIUM CHL 20 MEQ TABCR PO SCH (08:35)
[2018-10-24] MEDS: ENOXAPARIN 40 MG/0.4ML SYR SC SCH (08:35)
[2018-10-24] MEDS: DOCUSATE SODIUM 100 MG CAP PO SCH (08:35)
[2018-10-24] MEDS: PANTOPRAZOLE SOD 40 MG TABEC PO SCH (08:35)
[2018-10-24] MEDS: oxyCODONE HCL 5 MG CAP PO PRN (08:42)
[2018-10-24] MEDS ORDERED: CEFT2VIA53 IVP (10:29)
--- NOTE | 2018-10-24 11:04 | Hospitalist Depart ---
Discharge Summary Reason for Hosp/Final Diag: (1) Bacteremia Status: Acute Hospital Course & Plan: He did grow group D streptococcus in two of two blood cultures. He was initially placed on IV cefepime and vancomycin. Based on culture and sensitivity results he was transitioned to IV ceftriaxone. Given the fact he grew the group D streptococcus it raised concern he could have an oral, gastrointestinal, or possibly endocarditis source as the origin. On transthoracic echocardiogram he had no evidence of vegetations. We are unable to do transesophageal [place] [facility] [place] so we could not completely rule out the possibility of endocarditis. He also reported he was hospitalized twice within last 1-2 months with blood stream infections. This would certainly make the possibility of endocarditis more likely. He was set up for 6 weeks of IV antibiotics to cover for this possibility, but he was rather resistant to commit to this. I did advise him this is a very serious infection and needs appropriate treatment. He stated he understood all of this, but would like to see his hometown physicians. His repeat blood cultures on therapy have shown no growth up to this point. We attempted to get records from his [place], [place] hospitalization, but had not received any information at this time. We attempted to have a PICC line placed for his IV antibiotics, but he refused to have it performed. His rationale was he would follow up with his physicians in [place], [place] and "see what they have to say". We advised him that it would be preferable to have reliable IV access. He was willing to have the peripheral IV access. 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 He reported understanding of this, but apparently did make statements to staff he might drive his truck anyway. He was advised he would be taking great risks with his life and the life of others if he did drive his truck. (2) Septic shock Status: Acute Hospital Course & Plan: Resolved. He did require IV fluid resuscitation and a norepinephrine infusion. He was easily weaned off vasopressor support. He is on IV Rocephin as noted above. (3) Lung nodule Hospital Course & Plan: He did present with a cough and has been febrile. CT s can showed a nodular density that was favored to be infectious vs. possibility of a malignant process. His cultures are growing an alpha hemolytic Group D Streptococcus, likely from mouth or GI tract or endocarditis. It is possible, if he has a right-sided endocarditis, he could have septic emboli. Repeat CT scan is recommended for follow up on this. (4) Cirrhosis Status: Chronic Hospital Course & Plan: He does have a history of hepatitis C and alcohol use. (5) DM (diabetes mellitus) Status: Chronic Hospital Course & Plan: He is on chronic treatment with metformin and glimepiride, which were both initially placed on hold. He is on sliding scale insulin during his stay. His glimepiride has been resumed. (6) HCV infection Status: Chronic Hospital Course & Plan: He has been evaluated by his physicians in [place], [place]. Apparently, he is currently undergoing HAV and HBV immunization before beginning treatment at [facility] in [place]. Departure Weight (Pounds): 208 Weight (Ounces): 8.0 Result Diagram: 10/24/18 0510/24/18 0536 Item Value Date Time Lipase 73 U/L 10/20/18 0659 Amylase Level 41 U/L 10/20/18 0659 Total Protein 7.5 g/dl 10/20/18 0659 Albumin 3.6 g/dl 10/20/18 0659 Alkaline Phosphatase 279 U/L H 10/20/18 0659 Alanine Aminotransferase (ALT/SGPT) 102 U/L H 10/20/18 0659 Total Bilirubin 1.5 mg/dl H 10/20/18 0659 Aspartate Amino Transf (AST/SGOT) 117 U/L H 10/20/18 0659 Ammonia 57 UMOL/L H 10/20/18 0659 Lactate 3.1 mmol/L H 10/20/18 0659 Calcium Level 9.0 mg/dl 10/20/18 0659 Random Glucose 293 mg/dl H 10/20/18 0659 Glomerular Filtration Rate Calc > 60.0 10/20/18 0659 Creatinine 0.60 mg/dl L 10/20/18 0659 Blood Urea Nitrogen 11 mg/dl 10/20/18 0659 Carbon Dioxide Level 22 mmol/L 10/20/18 0659 Chloride Level 100 mmol/L 10/20/18 0659 Potassium Level 3.8 mmol/L 10/20/18 0659 Sodium Level 135 mmol/L L 10/20/18 0659 Lactate 3.3 mmol/L H 10/20/18 0924 Lactate 3.2 mmol/L H 10/20/18 1254 Lactate 2.0 mmol/L 10/20/18 1605 Albumin 2.7 g/dl L 10/21/18 0403 Total Protein 6.0 g/dl L 10/21/18 0403 Alkaline Phosphatase 105 U/L 10/21/18 0403 Alanine Aminotransferase (ALT/SGPT) 99 U/L H 10/21/18 0403 Aspartate Amino Transf (AST/SGOT) 105 U/L H 10/21/18 0403 Total Bilirubin 1.7 mg/dl H 10/21/18 0403 Calcium Level 7.3 mg/dl L 10/21/18 0403 Random Glucose 246 mg/dl H 10/21/18 0403 Glomerular Filtration Rate Calc > 60.0 10/21/18 0403 Creatinine 0.60 mg/dl L 10/21/18 0403 Blood Urea Nitrogen 18 mg/dl 10/21/18 0403 Carbon Dioxide Level 19 mmol/L L 10/21/18 0403 Chloride Level 108 mmol/L H 10/21/18 0403 Potassium Level 3.8 mmol/L 10/21/18 0403 Sodium Level 135 mmol/L L 10/21/18 0403 Albumin 2.5 g/dl L 10/22/18 0403 Total Protein 5.7 g/dl L 10/22/18 0403 Alkaline Phosphatase 120 U/L 10/22/18 0403 Alanine Aminotransferase (ALT/SGPT) 92 U/L H 10/22/18 0403 Aspartate Amino Transf (AST/SGOT) 81 U/L H 10/22/18 0403 Total Bilirubin 1.1 mg/dl 10/22/18 0403 Calcium Level 7.3 mg/dl L 10/22/18 0403 Random Glucose 101 mg/dl 10/22/18 0403 Glomerular Filtration Rate Calc > 60.0 10/22/18 0403 Creatinine 0.50 mg/dl L 10/22/18 0403 Blood Urea Nitrogen 13 mg/dl 10/22/18 0403 Carbon Dioxide Level 23 mmol/L 10/22/18 0403 Chloride Level 108 mmol/L H 10/22/18 0403 Potassium Level 3.4 mmol/L L 10/22/18 0403 Sodium Level 136 mmol/L L 10/22/18 0403 Albumin 2.6 g/dl L 10/23/18 0540 Total Protein 5.8 g/dl L 10/23/18 0540 Alkaline Phosphatase 104 U/L 10/23/18 0540 Alanine Aminotransferase (ALT/SGPT) 84 U/L H 10/23/18 0540 Aspartate Amino Transf (AST/SGOT) 85 U/L H 10/23/18 0540 Total Bilirubin 1.2 mg/dl 10/23/18 0540 Calcium Level 7.6 mg/dl L 10/23/18 0540 Random Glucose 92 mg/dl 10/23/18 0540 Glomerular Filtration Rate Calc > 60.0 10/23/18 0540 Creatinine 0.40 mg/dl L 10/23/18 0540 Blood Urea Nitrogen 9 mg/dl 10/23/18 0540 Carbon Dioxide Level 24 mmol/L 10/23/18 0540 Chloride Level 107 mmol/L 10/23/18 0540 Potassium Level 3.6 mmol/L 10/23/18 0540 Sodium Level 136 mmol/L L 10/23/18 0540 Albumin 2.7 g/dl L 10/24/18 0536 Total Protein 6.1 g/dl L 10/24/18 0536 Alkaline Phosphatase 138 U/L H 10/24/18 0536 Alanine Aminotransferase (ALT/SGPT) 93 U/L H 10/24/18 0536 Aspartate Amino Transf (AST/SGOT) 97 U/L H 10/24/18 0536 Total Bilirubin 1.2 mg/dl 10/24/18 0536 Calcium Level 8.4 mg/dl 10/24/18 0536 Urine Mucus Few /HPF 10/21/18 0000 Urine Hyaline Casts Few /LPF 10/21/18 0000 Urine Bacteria Few /HPF 10/21/18 0000 Urine Amorphous Crystals Few /HPF 10/21/18 0000 Urine Squamous Epithelial Cells Few /LPF 10/21/18 0000 Urine WBC 3 /HPF 10/21/18 0000 Urine RBC 3 /HPF 10/21/18 Urine Leukocyte Esterase Negative 10/21/18 0000 Urine Urobilinogen 1.0 mg/dL 10/21/18 0000 Urine Bilirubin Negative 10/21/18 0000 Urine Nitrite Negative 10/21/18 Urine Blood Small 10/21/18 Urine Ketones Negative mg/dL 10/21/18 0000 Urine Glucose (UA) 150 mg/dL H 10/21/18 0000 Urine Protein Negative mg/dL 10/21/18 0000 Urine Specific [place] 1.017 10/21/18 0000 Urine pH 6.0 pH 10/21/18 0000 Urine Clarity Cloudy 10/21/18 0000 Urine Color Yellow 10/21/18 0000 Vancomycin Last Dose Time 2100 10/22/18 0403 Vancomycin Last Dose Date 10/21/18 10/22/18 0403 Vancomycin Level Trough 9.23 ug/ml 10/22/18 0403 Vancomycin Level Trough 13.28 ug/ml 10/21/18 1152 Vancomycin Last Dose Date 10/21/18 10/21/18 1152 Vancomycin Last Dose Time 0500 10/21/18 1152 Vancomycin Last Dose Time ? 10/21/18 0403 Vancomycin Last Dose Date ? 10/21/18 0403 Vancomycin Level Trough 10.73 ug/ml 10/21/18 0403 Activated Partial Thromboplast Time 27 seconds 10/20/18 0659 Prothromb Time International Ratio 1.07 10/20/18 0659 Prothrombin Time 14.0 seconds 10/20/18 0659 White Blood Count 8.2 k/uL 10/20/18 0659 Hemoglobin 14.1 g/dL 10/20/18 0659 Hematocrit 42.8 % 10/20/18 0659 Platelet Count 187 K/uL 10/20/18 0659 Platelet Count 135 K/uL L 10/21/18 0403 Hematocrit 36.9 % L 10/21/18 0403 Hemoglobin 12.0 g/dL L 10/21/18 0403 White Blood Count 32.1 k/uL *H 10/21/18 0403 White Blood Count 26.2 k/uL H 10/22/18 0403 Hemoglobin 11.1 g/dL L 10/22/18 0403 Hematocrit 33.9 % L 10/22/18 0403 Platelet Count 120 K/uL L 10/22/18 0403 Platelet Count 140 K/uL L 10/23/18 0540 Hematocrit 34.2 % L 10/23/18 0540 Hemoglobin 11.2 g/dL L 10/23/18 0540 White Blood Count 11.7 k/uL H 10/23/18 0540 [facility] *LIVE* [address] [place] [address] MARK WALDROP M.D., DIRECTOR OF LABORATORY SERVICES ALINA TORRES M.D., PATHOLOGIST RUN DATE: 10/23/18 Specimen Inquiry Report PAGE 1 RUN TIME: 811 PATIENT: BIENVENIDO MILNER ACCT: [id number] LOC: [facility] U: [id number] AGE/SX: 53/M ROOM: 2266 RE10/20/[address]: ALINA PEREIRA : 1965 BED: 266 DIS: STATUS: ADM IN TLOC: SPEC #: [id number] MARIA STATUS: COMP REQ #: [id number] RECD: 10/20/18 [facility] DR: MIA ROMANO MD SOURCE: BLOOD PER ENTR: 10/20/[address]: MARLYN: ORDERED: BCGS, CULT BLOOD Procedure Result Verified BLOOD CULTURE GRAM STAIN Final 10/20/18-1301 GROWTH IN BOTH THE AEROBIC AND ANAEROBIC BOTTLES GRAM POSITIVE COCCI IN CHAINS POSITIVE BLOOD CULTURE GRAM STAIN REPORT CALLED TO: LÓPEZ ROOT R.N. DATE/TIME REPORT CALLED: 10/20/18 1301 ISH BLOOD CULTURE Final 10/23/18-811 Organism 1 STREP SPECIES, ALPHA HEMOLYTIC GROWTH PRESENT IN BOTH THE AEROBIC AND ANAEROBIC BOTTLES STREPTOCOCCUS GALLOLYTICUS SSP PASTEURIANUS (GROUP D) STR INGRID CardenasITiffCTiff RX --------- --- AMPICILLIN <=0.25 S CEFOTAXIME <=0.12 S CEFTRIAXONE <=0.12 S CLINDAMYCIN <=0.25 S ERYTHROMYCIN <=0.12 S LEVOFLOXACIN 2 S LINEZOLID <=2 S MOXIFLOXACIN 0.5 S BENZYLPENICILLIN 0.12 S TETRACYCLINE >=16 R TIGECYCLINE <=0.06 S VANCOMYCIN 0.25 S [facility] [place] [place] [facility] [address] [place] [address] MARK WALDROP M.D., DIRECTOR OF LABORATORY SERVICES ALINA TORRES M.D., PATHOLOGIST RUN DATE: 10/23/18 Specimen Inquiry Report PAGE 1 RUN TIME: 0811 PATIENT: BIENVENIDO MILNER ACCT: [id number] LOC: [facility] U: [id number] AGE/SX: 53/M ROOM: 2266 RE10/20/[address]: ALINA PEREIRA : 1965 BED: 266 DIS: STATUS: ADM IN TLOC: SPEC #: [id number] MARIA STATUS: COMP REQ #: [id number] RECD: 10/20/[address] [facility] DR: IMA ROMANO MD SOURCE: BLOOD LINE ENTR: 10/20/[address]: SPDES: ORDERED: BCGS, CULT BLOOD Procedure Result Verified BLOOD CULTURE GRAM STAIN Final 10/20/18-122 GROWTH IN BOTH THE AEROBIC AND ANAEROBIC BOTTLES GRAM POSITIVE COCCI IN CHAINS POSITIVE BLOOD CULTURE GRAM STAIN REPORT CALLED TO: PEDRO ROOT R.N. DATE/TIME REPORT CALLED: 10/20/18 122 ISH BLOOD CULTURE Final 10/23/18 Organism 1 STREP SPECIES, ALPHA HEMOLYTIC GROWTH PRESENT IN BOTH THE AEROBIC AND ANAEROBIC BOTTLES STREPTOCOCCUS GALLOLYTICUS SSP PASTEURIANUS (GROUP D) SEE #776 FOR SUSCEPTIBILITIES [facility] *LIVE* [address] [place] [address] MARK WALDROP M.D., DIRECTOR OF LABORATORY SERVICES ALINA TORRES M.D., PATHOLOGIST RUN DATE: 10/24/18 Specimen Inquiry Report PAGE 1 RUN TIME: 1001 PATIENT: BIENVENIDO MILNER ACCT: [id number] LOC: [facility] U: [id number] AGE/SX: 53/M ROOM: [facility] RE10/20/[address]: ALINA PEREIRA : 1965 BED: 266 DIS: STATUS: ADM IN TLOC: SPEC #: [id number] MARIA STATUS: RES REQ #: [id number] RECD: 10/23/[address]: TATA FLOWER DO SOURCE: BLOOD ENTR: 10/22/18-[address] [facility] [address]: ALINA PEREIRA DO [facility]: ORDERED: CULT BLOOD COMMENTS: Comments: Collect 2 samples from different sites 15 minutes apart Procedure Result Verified BLOOD CULTURE Preliminary 10/24/18-1000 NO GROWTH AFTER 1 DAY, [facility] [place] [address] [place] [address] MARK WALDROP M.D., DIRECTOR OF LABORATORY SERVICES ALINA TORRES M.D., PATHOLOGIST RUN DATE: 10/24/18 Specimen Inquiry Report PAGE 1 RUN TIME: 1001 PATIENT: BIENVENIDO MILNER ACCT: [id number] LOC: [facility] U: [id number] AGE/SX: 53/M ROOM: 2266 RE10/20/[address]: ALINA PEREIRA : 1965 BED: 266 DIS: STATUS: ADM IN TLOC: SPEC #: [id number] MARIA STATUS: RES REQ #: [id number] RECD: 10/23/[address]: TATA FLOWER DO SOURCE: BLOOD ENTR: 10/22/[address]: ALINA PEREIRA DO SPDESC: ORDERED: CULT BLOOD COMMENTS: Comments: Collect 2 samples from different sites 15 minutes apart Procedure Result Verified BLOOD CULTURE Preliminary 10/24/18-1000 NO GROWTH AFTER 1 DAY, REINCUBATED Imaging PATIENT NAME: Bienvenido Milner : 1965 MR: [id number] V: [id number] EXAM DATE: ORDERING PHYSICIAN: MIA ROMANO TECHNOLOGIST: [place] [facility] [place]: Bienvenido Milner : 1965 Visit/Account:[id number] Date of Sevice: 10/20/2018 CT CTA CHEST W & W/O CON, CT CHEST ABDOMEN PELVIS W/CON 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 CT chest, abdomen, and pelvis with contrast. Sagittal, coronal and slab 3D MIP coronal reconstructed images were also created of the chest for further evaluation and interpretation. One of the following dose optimization techniques was utilized in the performance of this exam: Automated exposure control; adjustment of the mA and/or kV according to the patient's size; or use of an iterative reconstruction technique. Specific details can be referenced in the facility's radiology CT exam operational policy. CONTRAST: 90 mL Isovue-370. COMPARISON: CT chest, abdomen, pelvis from same date. FINDINGS: CHEST: Heart/vessels: Satisfactory opacification of the pulmonary arteries without visualized pulmonary embolus. Mediastinum: Negative. Lymph nodes: Numerous nonspecific subcentimeter mediastinal, hilar, cardiophrenic angle and axillary lymph nodes. Borderline prominent left axillary lymph node measuring up to 10 mm in short axis (image 19 of series 4). Borderlin e prominent right axillary lymph node measuring up to 12 mm in short axis (image 17). Lungs/pleura: Cluster of nodular opacities within the periphery of the right upper lobe with focal area of consolidation measuring up to 14 x 7 mm (image 105 of series 10). No additional pulmonary opacities identified. There is mild basilar atelectasis. Bones/soft tissues: Negative. ABDOMEN/PELVIS: Hepatobiliary: Asymmetric enlargement of the left and caudate lobes with lobulated nodular contour of the liver, concerning for cirrhosis. No visualized hepatic lesions. There are a few punctate calcified granulomas. Diffuse gallbladder wall edema. No gross cholelithiasis. Spleen: Absent Adrenals: Indeterminate density right adrenal nodule measuring approximately 4.0 x 2.6 cm. Left adrenal gland is unremarkable. Pancreas: Negative. Kidneys/: Exophytic cystic lesion extending laterally off the right kidney measuring up to 1.5 cm in diameter. There is slightly increased attenuation measuring approximately 23 Hounsfield units. Mild/moderate nonspecific diffuse bladder wall thickening which may be at least somewhat related to underdistention. GI: Moderate circumferential wall thickening throughout the large and small bowel. Appendix is unremarkable. No definitive evidence for small bowel obstruction although there is prominent loops of jejunum, favored related to the wall thickening. The wall thickening within the small bowel is greatest within the jejunum. Vessels/spaces/nodes: Moderate atherosclerosis. Small volume free fluid. Numerous nonspecific subcentimeter retroperitoneal and mesenteric lymph nodes. Borderline prominent periportal lymph nodes. Sample node on image 96 measures up to 18 mm in short axis. Aorta and IVC appear widely patent and normal in caliber. Prominence of the main portal vein measuring up to 21 mm. Portal and hepatic veins appear grossly patent. There are small/moderate caliber abdominal varices. SMV is prominent in size and widely patent. Bones/soft tissues: Multiple small fat-containing supraumbilical ventral abdominal wall hernias. 5 mm anterolisthesis of L5 on S1 with bilateral L5 pars defects and moderate L5-S1 degenerative disc disease. IMPRESSION: Chest: 1. No acute findings. Negative for pulmonary embolus. 2. Focal cluster of nodular opacities within the right upper lobe favored related to a small airways infectious process including fungal and atypical etiologies. Alternatively however cannot exclude a primary pulmonary malignancy. 3 month follow-up CT chest is recommended.3. Nonspecific borderline prominent a nd subcentimeter mediastinal, hilar, axillary, and cardiophrenic angle lymph nodes. While these nodes may be reactive, cannot exclude a lymphoproliferative process. Abdomen/pelvis: 1. Diffuse thickened loops of bowel, greatest within the jejunum. Findings are nonspecific however could be related to the patient's septic shock and shock bowel. The IVC and aorta do not appear small/collapse although this could be related to fluid resuscitation. Also, cannot exclude component of wall edema from fluid resuscitation and thickening/edema related to portal colopathy/enteropathy given apparent findings of cirrhosis and portal hypertension. 2. Morphologic changes within the liver suggestive of cirrhosis without gross hepatoma. 3. Findings suggestive of portal hypertension including prominence of the main portal vein and small/moderate caliber abdominal varices. Is also small volume ascites. 4. Numerous nonspecific subcentimeter borderline prominent abdominal lymph nodes. Cannot exclude a lymphoproliferative process. 5. Diffuse gallbladder wall edema, favored related to a combination of fluid resuscitation and cirrhosis. 6. Mild/moderate nonspecific diffuse bladder wall thickening, likely at least partially related to underdistention. No perivesicular inflammation to suggest cystitis however cannot be completely excluded. 7. Incidental note of a mildly hyperdense cystic lesion extending laterally off of the right kidney measuring up to 1.5 cm, likely representing a hemorrhagic/proteinaceous cyst. Follow-up renal ultrasound is suggested on a nonemergent basis. 8. Hyperdense indeterminate density right adrenal nodule/nodularity. Differential includes a nonspecific adrenal nodule versus hemorrhage. CT adrenal mass protocol is recommended on a nonemergent basis 9. Additional incidental/chronic findings, as above. Results were discussed with MIA ROMANO at 10/20/2018 9:07 AM. Report Dictated By: Nelson Joel MD at 10/20/2018 8:39 AM Report E-Signed By: Nelson Joel MD at 10/20/2018 9:08 AM WSN:[id number] PATIENT NAME: Bienvenido Milner : 1965 MR: [id number] V: [id number] EXAM DATE: ORDERING PHYSICIAN: MIA ROMANO TECHNOLOGIST: [place] [facility] [place] Patient: Bienvenido Milner : 1965 Visit/Account:[id number] Date of Sevice: 10/20/2018 CHEST SINGLE AP Indication: CENTRAL LINE PLACEMENT Comparison: CT from same date. Findings: Right internal jugular central line with tip projecting over the cavoatrial junction. Heart size within normal limits. There is no focal infiltrate or lobar consolidation. No pneumothorax or pleural effusion. IMPRESSION: 1. No acute cardiopulmonary process. 2. Right internal jugular central line with tip projecting over the cavoatrial junction. No visualized pneumothorax. Report Dictated By: Nelson Joel MD at 10/20/2018 12:18 PM Report E-Signed By: Nelson Joel MD at 10/20/2018 12:19 PM WSN:[id number] Condition: Improved Discharge: Home, Home Health Home Health RN Follow Up For: Medication Management, Other (IV care/placement) Follow-Up Labs: Other (Follow up CBC, CMP in 5-7 days. Check fingerstick glucoses four times daily (AC and HS)/keep record for follow up appointments) Time Spent: > 30 min Discharge Instructions Home Meds Active Scripts Ceftriaxone Sodium (CEFTRIAXONE) 2 Gm Vial.port, 2 GM IVP Q24H@1300 for 40 Days, #40 VIAL 0 Refills Prov:JAMILAH ARMAS MD 10/24/18 Reported Medications Glimepiride (GLIMEPIRIDE) 4 Mg Tablet, 4 MG PO QDAY 10/22/18 Omeprazole (OMEPRAZOLE) 20 Mg Capsule.dr, 1 CAP PO QDAY, CAP 10/20/18 Discontinued Reported Medications Atorvastatin Calcium (LIPITOR) 40 Mg Tablet, 1 TAB PO QDAY, TAB 10/22/18 Metformin Hcl (METFORMIN HCL) 1,000 Mg Tablet, 2 TAB PO QDAY, TAB 10/20/18 Glipizide (GLIPIZIDE) 10 Mg Tablet, 10 MG PO DAILY 10/20/18 Diet: Diabetic Special Instructions: 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 Follow up with hometown physician immediately (within 1-2 days) upon return to [place], [place]. Go to nearest ER if any problems. Venous Thromboembolism Antithrombotics Is Pt On Any Antithrombotics?: Yes Problem Qualifiers (1) DM (diabetes mellitus): Diabetes mellitus type: type 2 JAMILAH ARMAS MD Oct 24, 2018 11:04
[2018-10-24] MEDS: INSULIN HUM LISPRO 100 UN/ML 3 ML VIAL SUBQ PRN (12:17)
[2018-10-24] MEDS: cefTRIAXone 2 GM VIAL IVP SCH (12:22)
--- NOTE | 2018-10-24 14:18 | NUR ---
Pt discharged with IV in LFA to allow him to self administer his IV abx. The patient was educated on the proper use of the IV. He refused PICC placement and insisted he only have a PIV.
== END 2018-10-24 13:30 | disposition home or self-care (01) | DRG 871 ==
LOC: ER 06:55 → ICU 10:39 → UNDOADMIN 10:39 → MED 10:39
PROVIDERS: ADMIT Internal Medicine; ATTEND Internal Medicine
PROC: 02HV33Z Insertion of Infusion Device into Superior Vena Cava, Percutaneous Approach (ICD-10-PCS; principal; 2018-10-20)
DX: A41.81 Sepsis due to Enterococcus (principal); R65.21 Severe sepsis with septic shock; J18.1 Lobar pneumonia, unspecified organism; K74.60 Unspecified cirrhosis of liver; E11.9 Type 2 diabetes mellitus without complications; B18.2 Chronic viral hepatitis C; K21.9 Gastro-esophageal reflux disease without esophagitis; G89.29 Other chronic pain; F17.210 Nicotine dependence, cigarettes, uncomplicated; Z79.84 Long term (current) use of oral hypoglycemic drugs
CPT/HCPCS: 36415; 36416; 71045; 71260; 71275; 74177; 80202; 81001; 82040; 82140; 82150; 82247; 82310; 82374; 82435; 82565; 82947; 82948; 83605; 83690; 84075; 84132; 84155; 84295; 84450; 84460; 84520; 85025; 85610; 85730; 87040; 87077; 87088; 87186; 93005; 93306; 96361; 96365; 96368; 96372; 96375; 99285; C1758; C9113; C9399; J0692; J0696; J1650; J1885; J2405; J2543; J3010; J3370; J7030; J7040; J7050; J7060; Q9967